=== PATIENT | female | born 1950 | race African-American/Black ===

== ENCOUNTER 2016-08-13 12:29 | Inpatient (IN) ==
--- NOTE | 2016-08-12 22:08 | Discharge Summary ---
<Yaneli Garcia - Last Filed: 08/12/16 22:06> Date of Encounter: 08/12/16 - Discharge Diagnosis (1) Arthritis of knee, right Priority: Primary Status: Acute (2) CLAUDINE (obstructive sleep apnea) Priority: Secondary Status: Chronic (3) HTN (hypertension) Priority: Secondary Status: Chronic Qualifiers: Hypertension type: essential hypertension Qualified Code(s): I10 - Essential (primary) hypertension - Discharge Medications Home Medications: Amlodipine Besylate 10 mg PO DAILY 05/30/16 [History] Multivitamin [Multi-Day Vitamins] 1 tab PO DAILY 05/30/16 [History] Naproxen Sodium [Aleve] 220 mg PO BID PRN 05/30/16 [History] Potassium Chloride [K-Tab ER] 10 meq PO DAILY 05/30/16 [History] Triamterene/Hydrochlorothiazid [Dyazide 37.5-25 Capsule] 1 tab PO DAILY [History] Aspirin Enteric Coated [Aspirin EC] 325 mg PO DAILY #21 tablet.dr 08/12/16 [Rx] OxyCODONE Immed Rel [Roxicodone 5 MG] 5 - 10 mg PO Q6HR PRN #40 tablet 08/12/16 [Rx] Metoprolol [Lopressor] 25 mg PO BID 08/14/16 [History] Allergies/Adverse Reactions: Allergies No Known Drug Allergies Allergy (Verified 05/23/16 09:41) See Comments Primary care physician: Yariel Jacobson - Patient Status Disposition: Transfer Inpatient Rehab Fac Condition: Good - Discharge Instructions Follow Up With: Souleymane Nur MD [Partnered Physician] - 09/11/16 10:40 am Yaneli Garcia PAC [Physician Associate Quality Engineer] - 08/24/16 10:45 am Yariel Jacobson DO [Primary Care Provider] - - Hospital Course Hospital course: Ms. Douglass is a 65 year old female - Time Spent with Patient Total time spent providing and/or coordinating discharge services: <Souleymane Nur - Last Filed: 08/15/16 08:02> Date of Encounter: 08/15/16 Time of Encounter: 08:01 - Discharge Diagnosis (1) Arthritis of knee, right Priority: Primary Status: Acute (2) CLAUDINE (obstructive sleep apnea) Priority: Secondary Status: Chronic (3) HTN (hypertension) Priority: Secondary Status: Chronic Qualifiers: Hypertension type: essential hypertension Qualified Code(s): I10 - Essential (primary) hypertension Primary care physician: Yariel Jacobson - Patient Status Functional capacity at discharge: uses cane/walker Overall status at discharge: patient is progressing back to baseline - Hospital Course Hospital course: Ms. Douglass is a 65 year old female The patient had an uneventful postoperative course. They received antibiotics and physical therapy and were discharged in stable condition. There will follow -up in the office in 2 weeks. Aspirin DVT prophylaxis - Time Spent with Patient Total time spent providing and/or coordinating discharge services:
--- NOTE | 2016-08-13 12:49 | History & Physical Report ---
Date of Encounter: 08/13/16 Time of Encounter: 12:48 24 Hour HP Update - Instructions Instructions: If the History and Physical is less than 30 days old and was completed prior to A.M. admission and or procedure and has NOT been updated on calendar day of procedure please complete this update prior to performing procedure. - Update Patient reports changes in Medical Condition: No Changes in examination, assessment, or condition: No Changes in Medication: No Preop tests/diagnostics Reviewed: Yes Surgery Remains Indicated: Yes Consent for Planned Operative Procedure(s) Verified: Yes - Pre-Operative Checklist Preoperative Checklist Indicated: No Prophylactic Antibiotic Ordered: Yes Is VTE Prophylaxis Indicated?: Yes
[2016-08-13] MEDS ORDERED: CeFAZolin Pre 3,000 MG/100 ML 3,000 MG/100 ML BAG IVPB ONE (12:56)
[2016-08-13] MEDS ORDERED: Ringers Solution, Lactated 1,000 ML IVC SCH ×2 (13:00→18:32)
[2016-08-13] MEDS ORDERED: Albuterol 2.5 MG/3 ML NEBULIZER ONE (13:18)
[2016-08-13] MEDS ORDERED: Gabapentin 300 MG CAPSULE PO ONE (13:29)
[2016-08-13] MEDS ORDERED: Famotidine 20 MG/2 ML VIAL IVP ONE (13:29)
--- NOTE | 2016-08-13 13:40 | Anesthesia Evaluation PreOp ---
Date of Encounter: 08/13/16 Time of Encounter: 13:40 - Past History Planned Operation: Rt TKA Cardiac History: CHF (Hx Cardiomyopathy), HTN, Other ([facility] 2016 shows mild CAD, LVEF 60%) Pulmonary History: CLAUDINE Dx (no CPAP yet) ADMINISTRATION DEAN History: Denies Any Significant HX Other Medical History: Other (Morbid Obesity) Anesthesia History: No Prior Anesthetic Complications : No Alcohol Use: rarely Drug use: none Medications and Allergies Amlodipine Besylate 10 mg PO DAILY 05/30/16 [History] Multivitamin [Multi-Day Vitamins] 1 tab PO DAILY 05/30/16 [History] Naproxen Sodium [Aleve] 220 mg PO BID PRN 05/30/16 [History] Potassium Chloride [K-Tab ER] 10 meq PO DAILY 05/30/16 [History] Triamterene/Hydrochlorothiazid [Dyazide 37.5-25 Capsule] 1 tab PO DAILY [History] Aspirin Enteric Coated [Aspirin EC] 325 mg PO DAILY #21 tablet. 08/12/16 [Rx] OxyCODONE Immed Rel [Roxicodone 5 MG] 5 - 10 mg PO Q6HR PRN #40 tablet 08/12/16 [Rx] Allergies No Known Drug Allergies Allergy (Verified 05/23/16 09:41) See Comments - Meds/Allergy Pre-op Review Medications Reviewed: Yes Allergies Reviewed: Yes Beta Blockers on Current Med List: Yes (Took Lopresor today 0730) Anesthesia Results - Labs Laboratory Tests 08/07/16 08/07/16 09:08 09:08 Hgb 13.1 Hct 42.0 Plt Count 231 Sodium 142 Potassium 3.9 BUN 21 H Creatinine 0.89 - Imaging EKG: report reviewed (SR, anteroseptal infarct undetermined age) Additional studies: LVEF 60% Anesthesia Exam O2 Sat Height 1.52 m Height 1.52 m Height 1.52 m Weight 126.552 kg Weight 126.552 kg Weight 126.552 kg O2 Sat by Pulse Oximetry 97 Vital Signs Temp Pulse Resp BP Pulse Ox 97.8 F 69 18 121/74 97 08/13/16 13:13 08/13/16 13:13 08/13/16 13:13 08/13/16 13:13 08/13/16 13:13 Height: 5'0 Weight: 280 lbs NPO (# of Hours): MN Pain Scale: 0 - HEENT Pupil (Motor): Pupils equal, EOMI Mallampati: II Teeth: Normal Oral Opening: Greater than 3 - ADMINISTRATION DEAN LOC: Oriented ADMINISTRATION DEAN Motor: Normal RUE, Normal LUE, Normal RLE, Normal LLE, Normal Face ADMINISTRATION DEAN Sensory: Normal: RUE, LUE, RLE, LLE, Face - Cardiac Rhythm: Regular Murmur: None JVD: No Carotid Bruit: No - Pulmonary Breath Sounds: bilateral Clear Respiratory Effort: Symmetrical Anesthesia Assess/Plan ASA Score: 3 (MO CAD HTN) Modified Lucie Scale for Level of Consciousness: Cooperative, oriented, and tranquil Anesthetic Plan: General, Regional Monitoring Plan: Standard Monitors Recovery Plan: PACU (Discussed GA and RA, agrees nahed proceed)
[2016-08-13] MEDS ORDERED: *HR* Midazolam HCl 2 MG/2 ML VIAL ONE (14:21)
[2016-08-13] MEDS ORDERED: *HR* Propofol 200 MG/20 ML VIAL IVP ONE ×2 (14:21→16:08)
[2016-08-13] MEDS ORDERED: *HR* FentaNYL (PF) 100 MCG/2 ML VIAL ONE ×2 (14:21→16:08)
[2016-08-13] MEDS ORDERED: Lidocaine -MPF 2% 2 ML VIAL ONE ×2 (14:22→16:08)
[2016-08-13 14:28] LABS: Hemoglobin 12.9 g/dL (11.5-15.4)
[2016-08-13] MEDS ORDERED: Tetracaine/PF 20 MG/2 ML AMPUL ONE (15:26)
[2016-08-13] MEDS ORDERED: Bupivacaine/Clonidine Syringe 1 EACH SYRINGE ONE (15:26)
[2016-08-13] MEDS ORDERED: ROPIVACAINE HCL/PF 0.5% 30 ML VIAL ONE (15:26)
[2016-08-13] MEDS ORDERED: *HR* Succinylcholine 200 MG/10 ML VIAL IVP ONE ×2 (15:30→16:08)
[2016-08-13] MEDS ORDERED: Dexamethasone 4 MG/ML VIAL ONE (16:08)
[2016-08-13] MEDS ORDERED: Ondansetron 4 MG/2 ML VIAL ONE (16:08)
--- NOTE | 2016-08-13 16:48 | Orthopedic Operative Note ---
Date of procedure: 08/13/16 Pre-op diagnosis: Right knee arthritis Post-op diagnosis: same Procedure: Procedure: Right Total knee replacement Estimated blood loss: 200 cc Hardware: Metal and polyethylene replacement. Arthrex Femur: 3 Tibia: 3 PS insert: 12 Patella: 30 Exam Under anesthesia: Full extension and flexion to 90 degrees Procedural Notes: Grade 4 arthritic changes medial compartment patellofemoral joint. Operative procedure: The patient was brought to the operating room and placed on the operating room table. After general anesthesia was administered the operative knee was examined. Findings were noted in the exam under anesthesia. The operative extremity was prepped and draped in sterile surgical fashion. The patient received IV antibiotics prior to skin incision. A standard midline incision was made centered over the patella. The incision was made through the skin and subcutaneous tissue. A medial parapatellar tendon approach was performed. Care was taken to preserve tissue along the medial aspect of the patella. And to protect the patella tendon. The deep MCL was released off the medial tibia. The infra patella fat pad was excised. Knee was brought into flexion. Patient noted to have grade 4 arthritic changes medial compartment and patellofemoral joint. The entry hole was made for the intramedullary femoral guide. The guide was seated in 6 degrees of valgus. Anterior cut was made followed by the distal cut. The ACL the PCL the medial and the lateral menisci were excised. The tibia was subluxed forward. The entry hole was made for the intramedullary tibial guide. Guide was seated to resect 2 mm off the more abnormal side. The knee was brought into flexion the distal femur was sized to a 3. The femoral guide was seated, the anterior cut was made followed by the posterior condylar cut, followed by the chamfer cuts. The finishing guide was seated the box cut was made and the lug holes were drilled. The tibia was sized to a 3, the tibial tray was seated and prepared with the large drill followed by the fin cutter. Trial reduction revealed full extension no varus valgus instability with the appropriate 12 PS Mei. The patella was everted and cut was made at the level of the insertion of the quadriceps and patella tendon. The patella was sized to a 30 the guide was seated and the lug holes are drilled. Trial reduction revealed excellent patella tracking. All trial components were removed all bony surfaces were irrigated. The tibia was cemented first followed by the femur. The 12 PS Mei was seated and the knee was brought into full extension. The patella was cemented and held in place with the patellar holding clamp. After the cement had hardened, the knee sat for 2 minutes with a Betadine saline solution. The knee was then irrigated out with 2 L of pulse irrigation. The extensor mechanism was closed with #2 FiberWire suture and #2 PDS suture. The subcutaneous tissue was then irrigated and closed deep with #1 PDS suture superficially with 0 PDS suture and skin was closed with skin chely. The patient was then placed in a sterile dressing and a postoperative brace extubated and transferred to recovery room in stable condition. Anesthesia: GETAmanda Surgeon: Souleymane Nur Condition: stable Disposition: PACU
--- NOTE | 2016-08-13 16:48 | Anesthesia Procedures ---
Date of Encounter: 08/13/16 Time of Encounter: 13:38 Procedures: Anesthesia - Nerve Block Procedure Date: 08/13/16 Time: 15:45 Pre-op Diagnosis: Rt Knee OA Surgical Procedure: Rt TKA Checklist: Correct Patient Identifier Correct side: Right Blood Thinner: No Monitor Applied: EKG, BP, Pulse Oximetry Sedation: Versed (mg): 2 Sedation: Fentanyl (mcg): 100 Indication: Post Op Analgesia Pre-op Neuro Deficits: No Block Type: Femoral Catheter placed: No Depth at skin (cm): 3 Sterile Technique: Yes Ultrasound used: Yes Anatomy identified: Yes Visual spread of Local: Yes Neuro Stimulation: Yes Nerve Stimulator Range: >0.4 - 0.6 mA Blood on Needle Aspiration: No Smooth Injection of Local: Yes Pain with Injection of Local: No Prep: Chlorhexadine Needle: 22 x 50 mm Stimuplex Local: Tetracaine, Ropivacaine (0.5%) Volume (cc): 30 Number of Attempts: 1 Complications: None/effective block Vitals: Vital Signs/O2 Sat/Glucose, Most Current Temp Pulse Resp BP Pulse Ox 08/13/16 15:50 65 18 121/72 95 08/13/16 15:30 65 18 131/82 100 08/13/16 13:13 97.8 F 69 18 121/74 97
[2016-08-13] MEDS ORDERED: *HR* HYDROmorphone (PF) 1 MG/ML SYRINGE IVP PRN (16:50)
[2016-08-13] MEDS ORDERED: Ketorolac 30 MG/ML VIAL ONE (16:51)
[2016-08-13] MEDS ORDERED: *HR* Morphine 10 MG/ML VIAL ONE (17:04)
[2016-08-13] MEDS ORDERED: *HR* Enoxaparin 30 MG/0.3 ML SYRINGE SQ SCH (18:00)
--- NOTE | 2016-08-13 18:07 | Anesthesia Evaluation Post Op ---
Date of Encounter: 08/13/16 Time of Encounter: 18:05 - Vital Signs Vital Signs: Vital Signs/O2 Sat, Most Current Temp Pulse Resp BP Pulse Ox 97.0 F L 59 21 140/83 100 08/13/16 17:58 08/13/16 17:58 08/13/16 17:58 08/13/16 17:58 08/13/16 17:58 - Lungs Lungs: Clear Ascult./Percussion - Airway Airway: Non-obstructed - Cardiovascular Regular Rate - Mental Status Mental Status: Alert & Oriented, Answers Appropriately - Pain Pain Scale: 4 Pain Scale used: Numeric (1 - 10) - Nausea Vomiting Nausea Vomiting: Not Present - Hydration Hydration: Ice chips, Has not voided - Discharge PostOp Status: Transfer Patient to floor
[2016-08-13] MEDS ORDERED: NON-FORMULARY MEDICATION 1 EACH EACH (Naproxen Sodium [Aleve] 220 MG) PO PRN (18:32)
[2016-08-13] MEDS ORDERED: Naloxone 0.4 MG/ML INJ IVP PRN (18:32)
[2016-08-13] MEDS ORDERED: Temazepam 15 MG CAPSULE PO PRN (18:32)
[2016-08-13] MEDS ORDERED: MOM Conc 10 ML UD.LIQ PO PRN (18:32)
[2016-08-13] MEDS ORDERED: Sennosides 8.6 MG TABLET PO PRN (18:32)
[2016-08-13] MEDS: ceFAZolin 3,000 MG in D5% in Water 100 ML IVPB SCH (23:42)
[2016-08-14 06:02] LABS: Hematocrit 37.5 % (35.3-44.9); Hemoglobin 12.3 g/dL (11.5-15.4)
[2016-08-14] MEDS: *HR* Enoxaparin 30 MG/0.3 ML SYRINGE SQ SCH ×2 (06:32→17:21)
--- NOTE | 2016-08-14 06:37 | Orthopedics Progress Note ---
Date of Encounter: 08/14/16 Time of Encounter: 06:37 - Assessment and Plan (1) Arthritis of knee, right Current Visit: Yes Status: Acute (2) CLAUDINE (obstructive sleep apnea) Current Visit: Yes Status: Chronic (3) HTN (hypertension) Current Visit: Yes Status: Chronic Qualifiers: Hypertension type: essential hypertension Qualified Code(s): I10 - Essential (primary) hypertension Subjective Interval history: Patient was seen this morning doing well without complaints. Afebrile vital signs stable. Operative extremity: Neurovascularly intact Dressing clean dry and intact Calves nontender Assessment and plan: Continue with postoperative care Hematocrit 37 Objective Vital signs: Vital Signs Temp Pulse Resp BP Pulse Ox 08/14/16 03:54 97.9 F 74 16 117/76 100 08/14/16 00:29 97.6 F 74 16 121/76 100 08/13/16 22:04 97.6 F 80 15 117/43 98 08/13/16 20:48 97.5 F L 76 15 105/47 100 08/13/16 20:26 97.5 F L 72 16 142/85 100 08/13/16 19:37 97.4 F L 68 16 140/84 100 08/13/16 17:58 97.0 F L 59 21 140/83 100 08/13/16 17:48 97.0 F L 67 15 137/77 100 08/13/16 17:38 64 17 97/59 94 08/13/16 17:28 65 14 109/62 97 08/13/16 17:18 97.0 F L 66 12 85/52 96 08/13/16 15:50 65 18 121/72 95 08/13/16 15:30 65 18 131/82 100 08/13/16 13:13 97.8 F 69 18 121/74 97 Intake and Output 08/13/16 08/13/16 08/14/16 15:59 23:59 07:59 Intake Total 700 / 700 Output Total 200 / 200 Balance -200 / -200 700 / 700 Intake: IV Fluids 100 / 100 Ancef 3,000 MG In 100 / 100 Dextrose 5% 100 ML @ 200 mls/hr IVPB Q8HR TARI Rx#: [id number] Oral 600 / 600 Output: Urine 0 / 0 Estimated Blood Loss 200 / 200 Other: # Voids 1 Weight 126.552 kg 133.5 kg Patient Weight 08/14/16 23:59 Weight 133.5 kg - Labs CBC & BMP: 08/14/16 05:09 - VTE Documentation of Mechanical Device: Venous foot pump, device Consult Discharge Plan - Plan Referrals: Yariel Jacobson DO [Primary Care Provider] -
[2016-08-14 07:17] LABS: BUN/Creatinine Ratio 28 (6-26); Calcium 8.6 mg/dL (8.6-10.8); Carbon Dioxide 18 mEq/L (19-29); Chloride 108 mEq/L (98-109); Glucose 119 mg/dL (70-99); Osmolality,Calculated 296 (280-300); Potassium 5.2 mEq/L (3.5-4.5); Sodium 140 mEq/L (136-145); eGFR For African Americans > 60 (> 60); eGFR For Non-African Americans > 60 (> 60)
[2016-08-14 07:34] LABS: Blood Urea Nitrogen 26 mg/dL (7-20)
[2016-08-14] MEDS: ceFAZolin 3,000 MG in D5% in Water 100 ML IVPB SCH (08:05)
[2016-08-14] MEDS: amLODIPine 5 MG TABLET PO SCH (08:10)
[2016-08-14] MEDS: Multivit/Ca/Min/Fe/FA 1 TAB TABLET PO SCH (08:10)
[2016-08-14] MEDS: Ondansetron 4 MG/2 ML VIAL IVP PRN (08:21)
[2016-08-14] MEDS: *HR* OxyCODONE Immed Rel 5 MG TABLET PO PRN ×2 (09:55→17:20)
[2016-08-14] MEDS: *HR* HYDROmorphone (PF) 1 MG/ML SYRINGE IVP PRN (21:46)
[2016-08-15] MEDS: *HR* OxyCODONE Immed Rel 5 MG TABLET PO PRN ×4 (03:20→17:31)
[2016-08-15] MEDS: *HR* Enoxaparin 30 MG/0.3 ML SYRINGE SQ SCH ×2 (06:09→17:31)
[2016-08-15 06:29] LABS: Hematocrit 30.6 % (35.3-44.9)
[2016-08-15 06:30] LABS: Hemoglobin 9.9 g/dL (11.5-15.4)
[2016-08-15 06:41] LABS: BUN/Creatinine Ratio 26 (6-26); Blood Urea Nitrogen 21 mg/dL (7-20); Calcium 8.3 mg/dL (8.6-10.8); Carbon Dioxide 29 mEq/L (19-29); Chloride 104 mEq/L (98-109); Glucose 123 mg/dL (70-99); Osmolality,Calculated 288 (280-300); Potassium 4.1 mEq/L (3.5-4.5); Sodium 137 mEq/L (136-145); eGFR For African Americans > 60 (> 60); eGFR For Non-African Americans > 60 (> 60)
[2016-08-15] MEDS: *HR* HYDROmorphone (PF) 1 MG/ML SYRINGE IVP PRN (06:47)
--- NOTE | 2016-08-15 08:03 | Orthopedics Progress Note ---
Date of Encounter: 08/15/16 Time of Encounter: 08:02 - Assessment and Plan (1) Arthritis of knee, right Current Visit: Yes Status: Acute (2) CLAUDINE (obstructive sleep apnea) Current Visit: Yes Status: Chronic (3) HTN (hypertension) Current Visit: Yes Status: Chronic Qualifiers: Hypertension type: essential hypertension Qualified Code(s): I10 - Essential (primary) hypertension Subjective Interval history: Patient was seen this morning doing well without complaints. Afebrile vital signs stable. Operative extremity: Neurovascularly intact Dressing clean dry and intact Calves nontender Assessment and plan: Continue with postoperative care Hematocrit 30 discharged today Objective Vital signs: Vital Signs Temp Pulse Resp BP Pulse Ox 08/15/16 06:35 98.4 F 96 18 105/68 97 08/15/16 00:09 98.2 F 90 16 103/70 95 08/14/16 22:32 109 107/69 08/14/16 21:30 136/73 08/14/16 18:11 98.4 F 84 16 91/60 92 08/14/16 15:59 97.6 F 85 16 139/71 97 08/14/16 11:40 82 16 109/71 91 08/14/16 11:07 98.0 F 82 16 109/71 91 08/14/16 08:06 81 132/73 Intake and Output 08/14/16 08/15/16 08/15/16 23:59 07:59 15:59 Other: # Voids 1 1 - Labs CBC & BMP: 08/15/16 05:59 08/15/16 05:59 Labs: Abnormal lab results Hgb 9.9 g/dL (11.5-15.4) L D 08/15/16 05:59 Hct 30.6 % (35.3-44.9) L 08/15/16 05:59 BUN 21 mg/dL (7-20) H 08/15/16 05:59 Glucose 123 mg/dL (70-99) H 08/15/16 05:59 Calcium 8.3 mg/dL (8.6-10.8) L 08/15/16 05:59 - VTE Documentation of Mechanical Device: Venous foot pump, device Consult Discharge Plan - Plan Referrals: Souleymane Nur MD [Partnered Physician] - 09/11/16 10:40 am Yaneli Garcia, PAC [Physician Master Chef] - 08/24/16 10:45 am Yariel Jacobson, DO [Primary Care Provider] -
[2016-08-15] MEDS: Multivit/Ca/Min/Fe/FA 1 TAB TABLET PO SCH (09:28)
[2016-08-15] MEDS: amLODIPine 5 MG TABLET PO SCH (09:29)
[2016-08-15 11:14] VITALS: BP 134/78
[2016-08-15] MEDS: Ondansetron 4 MG/2 ML VIAL IVP PRN (16:21)
== END 2016-08-15 18:28 | DRG 470 ==
LOC: SAMDAY 12:29 → 3NENU 18:16
PROVIDERS: ADMIT Orthopaedic Surgery; ATTEND Orthopaedic Surgery

== ENCOUNTER 2017-04-22 07:56 | Inpatient (IN) ==
--- NOTE | 2017-04-21 13:23 | Discharge Summary ---
<Harini García - Last Filed: 04/21/17 13:19> Date of Encounter: 04/21/17 - Discharge Diagnosis (1) Osteoarthritis of left knee Priority: Primary Status: Chronic Qualifiers: Osteoarthritis type: unspecified Qualified Code(s): M17.12 - Unilateral primary osteoarthritis, left knee (2) CLAUDINE treated with BiPAP Priority: Secondary Status: Chronic (3) Hypertrophic cardiomyopathy Priority: Secondary Status: Chronic (4) Obesity Priority: Secondary Status: Chronic Qualifiers: Obesity type: unspecified obesity type Obesity classification: unspecified obesity classification Serious obesity comorbidity presence: unspecified whether serious comorbidity present Qualified Code(s): E66.9 - Obesity, unspecified (5) Psoriasis Priority: Secondary Status: Chronic (6) Status post total right knee replacement Priority: Secondary Status: Chronic (7) HTN (hypertension) Priority: Secondary Status: Chronic Qualifiers: Hypertension type: unspecified Qualified Code(s): I10 - Essential (primary ) hypertension - Discharge Medications Home Medications: Calcipotriene [Dovonex] 1 appl TP BID 04/22/17 [History] Metoprolol [Lopressor] 25 mg PO TID 04/22/17 [History] Naproxen [Naprosyn] 500 mg PO BID PRN 04/22/17 [History] Potassium Chloride [Klor-Con 10] 10 meq PO DAILY 04/22/17 [History] Triamterene/HCTZ 37.5/25mg [Dyazide] 1 tab PO DAILY 04/22/17 [History] amLODIPine [Norvasc] 5 mg PO DAILY 04/22/17 [History] Allergies/Adverse Reactions: 3 Allergy/AdvReac Type Severity Reaction Status Date / Time No Known Drug Allergies Allergy See Verified 04/22/17 08:47 Comments Primary care physician: Yariel Jacobson - Patient Status Disposition: Transfer Inpatient Rehab Fac Condition: Good - Discharge Instructions Follow Up With: Yariel Jacobson DO [Primary Care Provider] - - Hospital Course Hospital course: Ms. Douglass is a 66 year old female - Time Spent with Patient Total time spent providing and/or coordinating discharge services: <Souleymane Nur - Last Filed: 04/23/17 06:57> Date of Encounter: 04/23/17 Time of Encounter: 06:57 - Discharge Diagnosis (1) CLAUDINE (obstructive sleep apnea) Priority: Secondary Status: Chronic (2) HTN (hypertension) Priority: Secondary Status: Chronic Qualifiers: Hypertension type: unspecified Qualified Code(s): I10 - Essential (primary ) hypertension (3) Osteoarthritis of left knee Status: Chronic Qualifiers: Osteoarthritis type: unspecified Qualified Code(s): M17.12 - Unilateral primary osteoarthritis, left knee (4) CLAUDINE treated with BiPAP Priority: Secondary Status: Chronic (5) Psoriasis Priority: Secondary Status: Chronic (6) Status post total left knee replacement Priority: Primary Status: Acute Primary care physician: Yariel Jacobson - Patient Status Functional capacity at discharge: uses cane/walker Overall status at discharge: patient is progressing back to baseline - Hospital Course Hospital course: Ms. Douglass is a 66 year old female Status post total knee replacement The patient had an uneventful postoperative course. They received antibiotics and physical therapy and were discharged in stable condition. There will follow -up in the office in 2 weeks. - Time Spent with Patient Total time spent providing and/or coordinating discharge services:
--- NOTE | 2017-04-21 13:25 | Physician Discharge Referral ---
ExtendedCare Referral Info Transfer To: [facility] Provider in Charge: Dr Souleymane Nur - Diagnosis (1) Osteoarthritis of left knee Priority: Primary Status: Chronic (2) CLAUDINE treated with BiPAP Priority: Secondary Status: Chronic (3) Hypertrophic cardiomyopathy Priority: Secondary Status: Chronic (4) Obesity Priority: Secondary Status: Chronic (5) Psoriasis Priority: Secondary Status: Chronic (6) Status post total right knee replacement Priority: Secondary Status: Chronic (7) HTN (hypertension) Priority: Secondary Status: Chronic (8) Status post total left knee replacement Priority: Primary Status: Acute Expected Duration of Placement: less than 30 days Prognosis: Good Aware of Diagnosis: Patient Aware of Prognosis: Patient - Transfer Medications Prescriptions: OxyCODONE Immed Rel [Roxicodone 5 MG] 5 mg PO Q6HR PRN 7 Days #28 tablet PRN Reason: Severe Pain Aspirin Enteric Coated [Aspirin EC] 325 mg PO DAILY 21 Days #21 tablet.dr [place] Medications: Amlodipine Besylate 10 mg PO DAILY 05/30/16 [History] Multivitamin [Multi-Day Vitamins] 1 tab PO DAILY 05/30/16 [History] Potassium Chloride [K-Tab ER] 10 meq PO DAILY 05/30/16 [History] Triamterene/Hydrochlorothiazid [Dyazide 37.5-25 Capsule] 1 tab PO DAILY [History] Aspirin Enteric Coated [Aspirin EC] 325 mg PO DAILY #21 tablet. 08/12/16 [Rx] OxyCODONE Immed Rel [Roxicodone 5 MG] 5 - 10 mg PO Q6HR PRN #40 tablet 08/12/16 [Rx] Metoprolol [Lopressor] 25 mg PO BID 08/14/16 [History] Aspirin Enteric Coated [Aspirin EC] 325 mg PO DAILY 21 Days #21 tablet. [Rx] OxyCODONE Immed Rel [Roxicodone 5 MG] 5 mg PO Q6HR PRN 7 Days #28 tablet [Rx] Allergies/Adverse Reactions: 3 Allergy/AdvReac Type Severity Reaction Status Date / Time No Known Drug Allergies Allergy See Verified 05/23/16 09:41 Comments - Respiratory Orders Smoking Cessation: Smoking cessation has been advised. For more information, call the [place] Tobacco Quit Line at 6-373-TMBO-NOW. - Ancillary Orders May use pressure relief devices daily prn, May go on AMY w/family/respon alliance party w /meds at nurse discretion PRN, May consult with Dentist, Personnel Counselor, Care Specialist PRN - Mobility Orders Chair, Ambulate - Rehabiliation Orders Rehab Potential: Good Rehab Orders: Evaluation for Physical Therapy, Evaluation for Occupational Therapy Other: Total Knee replacement Precautions x 6 weeks Apply cold therapy wrap 3-6x/day for 20 minutes at a time. Encourage ambulation throughout the day and incentive spirometer 10x/hour. Elevate affected extremity above heart as tolerated. Brace: Wear knee immobilizer at night x 2 weeks. - Treatments Skin tear care topically daily PRN per policy List/Other: Opsite placed. Keep dressing intact until first follow up appointment. If > 50% saturated, notify office, remove dressing and place appropriate dressing back in place. Leave Zipline intact. Opsite dressing is water resistant, not water- proof. OK to shower, but do not get dressing wet. - Diet Orders Regular CERTIFICATION: I certify that the transfer of the above named patient to an Extended Care Facility is necessary for the continuing treatment of the diagnosis listed. The above information is true and accurate reflection of patient's current condition. Confidential - Redisclosure prohibited without a patient's written consent.
--- NOTE | 2017-04-22 08:16 | Anesthesia Evaluation PreOp ---
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 08/12/16 [Rx] OxyCODONE Immed Rel [Roxicodone 5 MG] 5 - 10 mg PO Q6HR PRN #40 tablet 08/12/16 [Rx] Metoprolol [Lopressor] 25 mg PO BID 08/14/16 [History] Aspirin Enteric Coated [Aspirin EC] 325 mg PO DAILY 21 Days #21 tablet. [Rx] OxyCODONE Immed Rel [Roxicodone 5 MG] 5 mg PO Q6HR PRN 7 Days #28 tablet [Rx] 3 Allergy/AdvReac Type Severity Reaction Status Date / Time No Known Drug Allergies Allergy See Verified 05/23/16 09:41 Comments - Meds/Allergy Pre-op Review Medications Reviewed: Yes Allergies Reviewed: Yes Beta Blockers on Current Med List: Yes If Beta Blockers taken, Date/Time (Last Dose taken): 04/22/2017 at 0700 Anesthesia Results - Labs Laboratory Tests 04/10/17 04/10/17 04/10/17 10:11 10:11 10:11 WBC 7.5 Hgb 13.2 Hct 41.9 Plt Count 229 PT 11.8 INR 1.1 APTT 32.6 Sodium 143 Potassium 4.6 BUN 21 Creatinine 0.88 - Imaging EKG: report reviewed (05/23/2016 SINUS RHYTHM ANTEROSEPTAL MYOCARDIAL INFARCTION , OF INDETERMINATE AGE MODERATE T-WAVE ABNORMALITY, CONSIDER LATERAL ISCHEMIA) Additional studies: 01/11/2017 Echo ([facility]) LVEF >70% LV normal size moderate concentric LVH grade 1 diastolic dysfunction mild AR mild aortic sclerosis moderate MR Anesthesia Exam O2 Sat Height 1.56 m Height 1.56 m Height 1.56 m Weight 129.274 kg Weight 129.274 kg Weight 129.274 kg O2 Sat by Pulse Oximetry 93 O2 Sat by Pulse Oximetry 93 O2 Sat by Pulse Oximetry 93 Vital Signs Temp Pulse Resp BP Pulse Ox 98.3 F 64 18 114/72 93 04/22/17 08:15 04/22/17 08:15 04/22/17 08:15 04/22/17 08:15 04/22/17 08:15 Height: 5'1.5" Weight: 285 lbs NPO (# of Hours): 8 Pain Scale: 0 Pain Scale Used: Numeric (1 - 10) - HEENT Pupil (Motor): EOMI Mallampati: II Teeth: Normal Oral Opening: Greater than 3 - MACHINE DESIGNER LOC: Oriented MACHINE DESIGNER Motor: Normal RUE, Normal LUE, Normal RLE, Normal LLE, Normal Face MACHINE DESIGNER Sensory: Normal: RUE, LUE, LLE, Face, Deficit: RLE - Cardiac Rhythm: Regular Murmur: None - Pulmonary Breath Sounds: bilateral Clear Respiratory Effort: Symmetrical Anesthesia Assess/Plan ASA Score: 3 Modified Lucie Scale for Level of Consciousness: Cooperative, oriented, and tranquil Anesthetic Plan: General, Regional Monitoring Plan: Standard Monitors Recovery Plan: PACU
[2017-04-22] MEDS ORDERED: Lidocaine -MPF 1% 2 ML VIAL ID ONE (08:17)
[2017-04-22] MEDS ORDERED: CeFAZolin Syr 3,000MG/30 ML 3,000 MG/30 ML SYRINGE IVPB ONE (08:17)
[2017-04-22] MEDS ORDERED: Vancomycin 2,000 MG in D5% in Water 500 ML IVPB ONE (08:25)
[2017-04-22] MEDS ORDERED: Albuterol 2.5 MG/3 ML NEBULIZER IH ONE (08:25)
[2017-04-22] MEDS ORDERED: Plasma-Lyte A (PH 7.4) 1,000 ML IVC SCH (08:30)
[2017-04-22] MEDS ORDERED: *HR* FentaNYL (PF) 100 MCG/2 ML VIAL ONE (08:33)
[2017-04-22] MEDS ORDERED: Dexamethasone 4 MG/ML VIAL ONE (08:33)
[2017-04-22] MEDS ORDERED: *HR* Succinylcholine 200 MG/10 ML VIAL IVP ONE (08:33)
[2017-04-22] MEDS ORDERED: Ondansetron 4 MG/2 ML VIAL ONE (08:33)
[2017-04-22] MEDS ORDERED: Lidocaine -MPF 4% 5 ML AMPUL ONE (08:33)
[2017-04-22] MEDS ORDERED: Lidocaine -MPF 2% 2 ML VIAL ONE ×2 (08:33→08:34)
[2017-04-22] MEDS ORDERED: *HR* Propofol 200 MG/20 ML VIAL IVP ONE (08:34)
[2017-04-22] MEDS ORDERED: *HR* Midazolam HCl 2 MG/2 ML VIAL ONE (08:34)
[2017-04-22] MEDS ORDERED: Ketorolac 30 MG/ML VIAL ONE (08:34)
[2017-04-22] MEDS ORDERED: *HR* Promethazine 25 MG/ML VIAL IVP PRN (08:41)
--- NOTE | 2017-04-22 08:44 | Anesthesia Procedures ---
Date of Encounter: 04/22/17 Time of Encounter: 09:36 Procedures: Anesthesia - Nerve Block Procedure Date: 04/22/17 Time: 09:36 Allergies/Adv Reactions: NKDA Pre-op Diagnosis: LEFT KNEE ARTHRITIS Surgical Procedure: LEFT KNEE ARTHROPLASTY Checklist: Correct Patient Identifier, Correct procedure, History checked Correct side: Left Blood Thinner: No Monitor Applied: EKG, BP, Pulse Oximetry Supplemental Oxygen via Nasal Cannula (L/min): 2 Sedation: Versed (mg): 2 Sedation: Fentanyl (mcg): 100 Indication: Post Op Analgesia Pre-op Neuro Deficits: No Block Type: Femoral (IPACK ) Catheter placed: No Sterile Technique: Yes Ultrasound used: Yes Anatomy identified: Yes Visual spread of Local: Yes Neuro Stimulation: Yes Nerve Stimulator Range: 0.2 - 0.4 mA Blood on Needle Aspiration: No Smooth Injection of Local: Yes Pain with Injection of Local: No Prep: Chlorhexadine Needle: 22 x 50 mm Stimuplex Local: Ropivacaine (FEMORAL ), Other (BUPIV 0.25% 20ML IPACK ) Volume (cc): 50 Number of Attempts: 1 Complications: None/effective block Vitals: Vital Signs - Last 8 Hours Temp Pulse Resp BP Pulse Ox 04/22/17 09:33 62 18 111/53 96 04/22/17 08:28 18 114/72 93 04/22/17 08:19 98.3 F 64 18 114/72 93 04/22/17 08:15 98.3 F 64 18 114/72 93 Intake and Output 04/21/17 04/22/17 04/22/17 23:59 07:59 15:59 Other: Weight 129.274 kg 129.274 kg Patient Weight 04/22/17 23:59 Weight 129.274 kg Comments: PER DR. ROOT REQUEST
[2017-04-22] MEDS ORDERED: ROPIVACAINE HCL/PF 0.5% 30 ML VIAL ONE (09:04)
--- NOTE | 2017-04-22 09:05 | History & Physical Report ---
Date of Encounter: 04/22/17 Time of Encounter: 09:05 24 Hour HP Update - Instructions Instructions: If the History and Physical is less than 30 days old and was completed prior to A.M. admission and or procedure and has NOT been updated on calendar day of procedure please complete this update prior to performing procedure. - Update Patient reports changes in Medical Condition: No Changes in examination, assessment, or condition: No Changes in Medication: No Preop tests/diagnostics Reviewed: Yes Surgery Remains Indicated: Yes Consent for Planned Operative Procedure(s) Verified: Yes - Pre-Operative Checklist Preoperative Checklist Indicated: No Prophylactic Antibiotic Ordered: Yes Is VTE Prophylaxis Indicated?: Yes
[2017-04-22] MEDS ORDERED: Ethanol\\Acetic Acid\\Na Ace\\Ben 1,000 ML IRRIG.SOLN IR ONE ×2 (09:10→15:55)
[2017-04-22] MEDS ORDERED: Povidone-Iodine 5% 60 ML, Sodium Chloride IRRigation 500 ML IR ONE (10:00)
--- NOTE | 2017-04-22 11:11 | Orthopedic Operative Note ---
Date of procedure: 04/22/17 Pre-op diagnosis: Left knee arthritis Post-op diagnosis: same Procedure: Procedure: Left Total knee replacement Estimated blood loss: 200 cc Hardware: Metal and polyethylene replacement. Arthrex Femur: 3 Tibia: 3 PS insert: 12 Patella:34 Exam Under anesthesia: Full flexion and extension no instability Procedural Notes: Grade 3 arthritic changes all 3 compartments. Operative procedure: The patient was brought to the operating room and placed on the operating room table. After general anesthesia was administered the operative knee was examined. Findings were noted in the exam under anesthesia. The operative extremity was prepped and draped in sterile surgical fashion. The patient received IV antibiotics prior to skin incision. A standard midline incision was made centered over the patella. The incision was made through the skin and subcutaneous tissue. A medial parapatellar tendon approach was performed. Care was taken to preserve tissue along the medial aspect of the patella. And to protect the patella tendon. The deep MCL was released off the medial tibia. The infra patella fat pad was excised. Knee was brought into flexion. Patient noted to have grade 3 arthritic changes all 3 compartments. The entry hole was made for the intramedullary femoral guide. The guide was seated in 6 degrees of valgus. Anterior cut was made followed by the distal cut. The ACL the PCL the medial and the lateral menisci were excised. The tibia was subluxed forward. The entry hole was made for the intramedullary tibial guide. Guide was seated to resect 2 mm off the more abnormal side. The knee was brought into flexion the distal femur was sized to a 3. The femoral guide was seated, the anterior cut was made followed by the posterior condylar cut, followed by the chamfer cuts. The finishing guide was seated the box cut was made and the lug holes were drilled. The tibia was sized to a 3, the tibial tray was seated and prepared with the large drill followed by the fin cutter. Trial reduction revealed full extension no varus valgus instability with the appropriate 12 PS Mei. The patella was everted and cut was made at the level of the insertion of the quadriceps and patella tendon. The patella was sized 34 the guide was seated and the lug holes are drilled. Trial reduction revealed excellent patella tracking. All trial components were removed all bony surfaces were irrigated. The tibia was cemented first followed by the femur. The 12 PS Mei was seated and the knee was brought into full extension. The patella was cemented and held in place with the patellar holding clamp. After the cement had hardened, the knee sat for 2 minutes with a Betadine saline solution. The PA close the knee. The knee was then irrigated out with 2 L of pulse irrigation. The extensor mechanism was closed with #2 FiberWire suture and #2 PDS suture. The subcutaneous tissue was then irrigated and closed deep with #1 PDS suture superficially with 0 PDS suture and skin was closed with skin chely. The patient was then placed in a sterile dressing and a postoperative brace extubated and transferred to recovery room in stable condition. Anesthesia: GETA Surgeon: Souleymane Nur Was there an starch treating assistant present: No Estimated blood loss (cc): 200 Condition: stable Disposition: PACU
[2017-04-22] MEDS ORDERED: *HR* HYDROmorphone 2 MG/ML SYRINGE ONE (11:30)
[2017-04-22] MEDS: *HR* HYDROmorphone (PF) 1 MG/ML SYRINGE IVP PRN ×2 (11:54→11:59)
[2017-04-22 12:21] LABS: Hematocrit 41.5 % (35.3-44.9); Hemoglobin 13.5 g/dL (11.5-15.4)
--- NOTE | 2017-04-22 12:26 | Anesthesia Evaluation Post Op ---
Date of Encounter: 04/22/17 Time of Encounter: 12:25 - Vital Signs Vital Signs: Vital Signs/O2 Sat, Most Current Temp Pulse Resp BP Pulse Ox 97.8 F 58 13 105/42 100 04/22/17 11:46 04/22/17 12:06 04/22/17 12:06 04/22/17 12:06 04/22/17 12:06 - Lungs Lungs: Clear Ascult./Percussion - Airway Airway: Non-obstructed - Cardiovascular Regular Rate - Mental Status Mental Status: Asleep with brisk response to light stimulation - Pain Pain Scale: 4 Pain Scale used: Numeric (1 - 10) - Nausea Vomiting Nausea Vomiting: Not Present - Hydration Hydration: Ice chips, Has not voided - Discharge PostOp Status: Transfer Patient to floor
[2017-04-22] MEDS ORDERED: MOM Conc 10 ML UD.LIQ PO PRN (12:43)
[2017-04-22] MEDS ORDERED: Naloxone 0.4 MG/ML INJ IVP PRN (12:43)
[2017-04-22] MEDS ORDERED: Ringers Solution, Lactated 1,000 ML IVC SCH (12:43)
[2017-04-22] MEDS ORDERED: Temazepam 15 MG CAPSULE PO PRN (12:43)
[2017-04-22] MEDS ORDERED: Ondansetron 4 MG/2 ML VIAL IVP PRN (12:43)
[2017-04-22] MEDS ORDERED: Sennosides 8.6 MG TABLET PO PRN (12:43)
[2017-04-22] MEDS ORDERED: *HR* HYDROmorphone (PF) 1 MG/ML SYRINGE IVP PRN (12:43)
[2017-04-22] MEDS: *HR* OxyCODONE Immed Rel 5 MG TABLET PO PRN ×2 (14:11→20:00)
[2017-04-22] MEDS ORDERED: *HR* Enoxaparin 30 MG/0.3 ML SYRINGE SQ SCH (18:00)
[2017-04-22] MEDS: *HR* Enoxaparin 30 MG/0.3 ML SYRINGE SQ SCH (18:40)
[2017-04-22] MEDS: CeFAZolin Syr 3,000MG/30 ML 3,000 MG/30 ML SYRINGE IVPB SCH (18:45)
[2017-04-22] MEDS: (Calcipotriene [Dovonex] 1 APPL) TP SCH (20:03)
[2017-04-23] MEDS: *HR* OxyCODONE Immed Rel 5 MG TABLET PO PRN ×4 (02:31→21:50)
[2017-04-23] MEDS: CeFAZolin Syr 3,000MG/30 ML 3,000 MG/30 ML SYRINGE IVPB SCH (02:32)
[2017-04-23] MEDS: *HR* Enoxaparin 30 MG/0.3 ML SYRINGE SQ SCH ×2 (06:38→16:52)
--- NOTE | 2017-04-23 06:58 | Orthopedics Progress Note ---
Date of Encounter: 04/23/17 Time of Encounter: 06:58 - Assessment and Plan (1) CLAUDINE (obstructive sleep apnea) Current Visit: No Status: Chronic (2) HTN (hypertension) Current Visit: No Status: Chronic Qualifiers: Hypertension type: unspecified Qualified Code(s): I10 - Essential (primary ) hypertension (3) Osteoarthritis of left knee Current Visit: No Status: Chronic Qualifiers: Osteoarthritis type: unspecified Qualified Code(s): M17.12 - Unilateral primary osteoarthritis, left knee (4) CLAUDINE treated with BiPAP Current Visit: No Status: Chronic (5) Psoriasis Current Visit: No Status: Chronic (6) Status post total left knee replacement Current Visit: No Status: Acute Subjective Interval history: Patient was seen this morning doing well without complaints. Afebrile vital signs stable. Operative extremity: Neurovascularly intact Dressing clean dry and intact Calves nontender Assessment and plan: Continue with postoperative care Hematocrit 41 discharged today Objective Vital signs: Vital Signs Temp Pulse Resp BP Pulse Ox 04/23/17 04:03 97.5 F L 70 17 130/78 96 04/23/17 00:04 97.3 F L 71 18 135/78 96 04/22/17 21:07 97.6 F 74 19 138/76 96 04/22/17 15:51 97.8 F 72 14 109/68 96 04/22/17 14:02 97.4 F L 67 16 111/71 99 04/22/17 12:55 97.9 F 59 14 121/80 96 04/22/17 12:26 97.0 F L 61 13 108/61 97 04/22/17 12:16 97.0 F L 60 14 106/70 94 04/22/17 12:06 58 13 105/42 100 04/22/17 11:56 61 17 114/74 99 04/22/17 11:46 97.8 F 69 15 104/81 93 04/22/17 10:00 61 18 131/73 97 04/22/17 09:45 61 18 114/65 97 04/22/17 09:33 62 18 111/53 96 04/22/17 08:28 18 114/72 93 04/22/17 08:19 98.3 F 64 18 114/72 93 04/22/17 08:15 98.3 F 64 18 114/72 93 Intake and Output 04/22/17 04/22/17 04/23/17 15:59 23:59 07:59 Intake Total 830 / 830 / 30 Output Total 200 / 200 250 / 250 Balance -200 / -200 580 / 580 Intake: IV Fluids 30 / 30 Ancef Syringe 3,000 MG/30 ML 3, 30 30 / 30 000 mg In 30 ml @ 200 mls/hr IVPB Q8H TARI Rx#:[id number] Oral 800 / 800 Output: Urine 0 / 0 250 / 250 Estimated Blood Loss 200 / 200 Other: Weight 129.274 kg 132 kg Patient Weight 04/23/17 23:59 Weight 132 kg - Labs CBC & BMP: 04/22/17 11:59 - VTE Documentation of Mechanical Device: Venous foot pump, device Consult Discharge Plan - Plan Referrals: Yariel Jacobson DO [Primary Care Provider] -
[2017-04-23] MEDS: amLODIPine 5 MG TABLET PO SCH (07:46)
[2017-04-23] MEDS: (Calcipotriene [Dovonex] 1 APPL) TP SCH ×2 (07:46→20:14)
[2017-04-23 07:51] LABS: BUN/Creatinine Ratio 25 (6-26); Blood Urea Nitrogen 19 mg/dL (8-23); Calcium 8.1 mg/dL (8.6-10.3); Carbon Dioxide 26 mEq/L (23-29); Chloride 105 mEq/L (98-107); Glucose 108 mg/dL (70-105); Osmolality,Calculated 289 (280-300); Potassium 4.2 mEq/L (3.5-5.1); Sodium 138 mEq/L (136-145); eGFR For African Americans > 60 (> 60); eGFR For Non-African Americans > 60 (> 60)
[2017-04-23 08:04] LABS: Hematocrit 32.7 % (35.3-44.9)
[2017-04-23 08:07] LABS: Hemoglobin 10.3 g/dL (11.5-15.4)
--- NOTE | 2017-04-23 15:29 | Event Note ---
Date of Encounter: 04/23/17 Time of Encounter: 12:20 PCR- POD#1 L TKR 04/22/17 [facility] PCR - Patient seen at bedside. Pain control: Adequate Participating in PT. All questions and concerns addressed. Educated on use of incentive spirometer, ambulation, and hydration. Patient educated on post-operative restrictions and care. Addressed: see above. D/C plan: [facility] when auth obtained
[2017-04-24] MEDS: *HR* OxyCODONE Immed Rel 5 MG TABLET PO PRN ×4 (02:12→16:52)
[2017-04-24] MEDS: *HR* Enoxaparin 30 MG/0.3 ML SYRINGE SQ SCH ×2 (05:18→16:53)
[2017-04-24 07:09] LABS: Hematocrit 30.3 % (35.3-44.9); Hemoglobin 9.6 g/dL (11.5-15.4)
[2017-04-24 07:29] LABS: BUN/Creatinine Ratio 26 (6-26); Blood Urea Nitrogen 19 mg/dL (8-23); Calcium 8.3 mg/dL (8.6-10.3); Carbon Dioxide 30 mEq/L (23-29); Chloride 103 mEq/L (98-107); Glucose 124 mg/dL (70-105); Osmolality,Calculated 288 (280-300); Potassium 3.8 mEq/L (3.5-5.1); Sodium 137 mEq/L (136-145); eGFR For African Americans > 60 (> 60); eGFR For Non-African Americans > 60 (> 60)
[2017-04-24] MEDS: amLODIPine 5 MG TABLET PO SCH (08:19)
[2017-04-24] MEDS: (Calcipotriene [Dovonex] 1 APPL) TP SCH ×2 (08:25→20:00)
--- NOTE | 2017-04-24 10:57 | Orthopedics Progress Note ---
Date of Encounter: 04/24/17 Time of Encounter: 10:56 - Assessment and Plan (1) CLAUDINE (obstructive sleep apnea) Current Visit: No Status: Chronic (2) HTN (hypertension) Current Visit: No Status: Chronic Qualifiers: Hypertension type: unspecified Qualified Code(s): I10 - Essential (primary ) hypertension (3) Osteoarthritis of left knee Current Visit: No Status: Chronic Qualifiers: Osteoarthritis type: unspecified Qualified Code(s): M17.12 - Unilateral primary osteoarthritis, left knee (4) CLAUDINE treated with BiPAP Current Visit: No Status: Chronic (5) Psoriasis Current Visit: No Status: Chronic (6) Status post total left knee replacement Current Visit: No Status: Acute Subjective Interval history: Patient was seen this morning doing well without complaints. Afebrile vital signs stable. Operative extremity: Neurovascularly intact Dressing clean dry and intact Calves nontender Assessment and plan: Continue with postoperative care Discharge held secondary to placement will discharge tomorrow Objective Vital signs: Vital Signs Temp Pulse Resp BP Pulse Ox 04/24/17 10:50 98.2 F 90 18 125/73 93 04/24/17 06:37 98.4 F 71 18 124/78 94 04/23/17 23:37 97.9 F 71 18 132/72 99 04/23/17 19:52 97.8 F 76 18 99/61 97 04/23/17 16:07 98.1 F 71 16 107/62 96 04/23/17 11:17 99.0 F 74 16 109/67 92 Intake and Output 04/23/17 04/24/17 04/24/17 23:59 07:59 15:59 Intake Total 100 / 100 50 / 50 240 / 240 Output Total 225 / 225 Balance 100 / 100 -175 / -175 240 / 240 Intake: Oral 100 / 100 50 / 50 240 / 240 Output: Urine 225 / 225 Other: Meal Breakfast Percent of Meal Consumed 10% # Voids 1 1 - Labs CBC & BMP: 04/24/17 06:40 04/24/17 06:40 Labs: Abnormal lab results Hgb 9.6 g/dL (11.5-15.4) L 04/24/17 06:40 Hct 30.3 % (35.3-44.9) L 04/24/17 06:40 Carbon Dioxide 30 mEq/L (23-29) H 04/24/17 06:40 Glucose 124 mg/dL (70-105) H 04/24/17 06:40 Calcium 8.3 mg/dL (8.6-10.3) L 04/24/17 06:40 - VTE Documentation of Mechanical Device: Venous foot pump, device Consult Discharge Plan - Plan Referrals: Yariel Jacobson DO [Primary Care Provider] -
--- NOTE | 2017-04-24 15:45 | Event Note ---
Date of Encounter: 04/24/17 Time of Encounter: 12:30 PCR- POD#2 L TKR 04/22/17 Boom PCR - Patient seen at bedside. Pain control: Adequate Participating in PT. All questions and concerns addressed. Educated on use of incentive spirometer, ambulation, and hydration. Patient educated on post-operative restrictions and care. Addressed: see above. D/C plan: [facility] tomorrow
[2017-04-25] MEDS: *HR* OxyCODONE Immed Rel 5 MG TABLET PO PRN ×3 (00:36→11:34)
[2017-04-25] MEDS: *HR* Enoxaparin 30 MG/0.3 ML SYRINGE SQ SCH (05:06)
[2017-04-25 06:39] VITALS: BP 108/66
--- NOTE | 2017-04-25 08:06 | Orthopedics Progress Note ---
Date of Encounter: 04/25/17 Time of Encounter: 08:05 - Assessment and Plan (1) CLAUDINE (obstructive sleep apnea) Current Visit: No Status: Chronic (2) HTN (hypertension) Current Visit: No Status: Chronic Qualifiers: Hypertension type: unspecified Qualified Code(s): I10 - Essential (primary ) hypertension (3) Osteoarthritis of left knee Current Visit: No Status: Chronic Qualifiers: Osteoarthritis type: unspecified Qualified Code(s): M17.12 - Unilateral primary osteoarthritis, left knee (4) CLAUDINE treated with BiPAP Current Visit: No Status: Chronic (5) Psoriasis Current Visit: No Status: Chronic (6) Status post total left knee replacement Current Visit: No Status: Acute Subjective Interval history: Patient was seen this morning doing well without complaints. Afebrile vital signs stable. Operative extremity: Neurovascularly intact Dressing clean dry and intact Calves nontender Assessment and plan: Continue with postoperative care Discharge held secondary to placement will discharge today Objective Vital signs: Vital Signs Temp Pulse Resp BP Pulse Ox 04/25/17 06:36 99.6 F 95 15 108/66 96 04/24/17 23:40 98.0 F 77 17 123/75 98 04/24/17 19:44 98.2 F 75 18 128/78 96 04/24/17 15:40 98.5 F 77 20 124/78 94 04/24/17 10:50 98.2 F 90 18 125/73 93 Intake and Output 04/24/17 04/25/17 04/25/17 23:59 07:59 15:59 Intake Total 100 / 100 50 / 50 Output Total 300 / 300 350 / 350 Balance -200 / -200 -300 / -300 Intake: Oral 100 / 100 50 / 50 Output: Urine 300 / 300 350 / 350 Other: # Voids 1 # Urine Diapers 1 - Labs CBC & BMP: 04/24/17 06:40 04/24/17 06:40 Labs: Abnormal lab results Hgb 9.6 g/dL (11.5-15.4) L 04/24/17 06:40 Hct 30.3 % (35.3-44.9) L 04/24/17 06:40 Carbon Dioxide 30 mEq/L (23-29) H 04/24/17 06:40 Glucose 124 mg/dL (70-105) H 04/24/17 06:40 Calcium 8.3 mg/dL (8.6-10.3) L 04/24/17 06:40 - VTE Documentation of Mechanical Device: Venous foot pump, device Consult Discharge Plan - Plan Referrals: Harini García, PAC [Physician Power Project Manager] - 05/02/17 8:30 am (& Wednesday, August 09, 2017 at 10:00 AM & Sunday, August 13, 2017 at 1:15 PM) Souleymane Nur MD [Partnered Physician] - 05/22/17 4:05 pm Yariel Jacobson DO [Primary Care Provider] -
[2017-04-25 08:21] LABS: Hematocrit 30.7 % (35.3-44.9)
[2017-04-25] MEDS: amLODIPine 5 MG TABLET PO SCH (09:34)
[2017-04-25] MEDS: (Calcipotriene [Dovonex] 1 APPL) TP SCH (09:34)
[2017-04-25] MEDS ORDERED: Acetaminophen 325 MG TABLET PO ONE (12:38)
== END 2017-04-25 13:00 | DRG 470 ==
LOC: SAMDAY 07:56 → 3NENU 12:55
PROVIDERS: ADMIT Orthopaedic Surgery; ATTEND Orthopaedic Surgery